=== PATIENT | female | born 2000 | race Caucasian/White ===

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

== ENCOUNTER 2022-01-14 22:45 | Emergency (ER) | payer BC ==
[~2022-01-14] VITALS: Ht 165.1 cm; Wt 83.0 kg
[~2022-01-14 22:45] MED LIST changes: +PREDNISONE10 MG PO
[2022-01-14 23:04] VITALS: BP 128/82
[2022-01-14 23:16] VITALS: BP 118/88
[2022-01-14 23:30] VITALS: BP 124/86
[2022-01-15 00:18] LABS: ALBUMIN 4.6 g/dL (3.2-5.0); BUN 17 mg/dL (8-21); BUN/CREATININE RATIO 26 (12-20 (CALC)); CHLORIDE 107 mmol/l (95-108); CREATININE 0.6 mg/dL (0.5-1.0); GFR FOR AFR.AMER. > 60 ML/MIN (>=60 (CALC)); GFR OTHER RACES > 60 ML/MIN (>=60 (CALC)); POTASSIUM 4.2 mmol/l (3.5-5.1); SGOT/AST 22 u/l (14-36); SODIUM 140 mmol/l (137-146); TOTAL PROTEIN 7.5 g/dL (6.3-8.2)
[2022-01-15 00:19] LABS: IMMATURE GRANULOCYTES 1.1 % (0.0-5.0); MEAN CORPUSCULAR HGB 28.7 pG CALC (26.0-32.0); MEAN CORPUSCULAR HGB CONC 32.2 g/dL CAL (32.0-36.0); NEUT# 5.58 thou/uL (2.00-7.15); RED BLOOD COUNT 4.87 mill/uL (4.20-5.60); RED CELL DISTRI WIDTH 12.1 % (11.5-15.5)
[2022-01-15 00:21] LABS: ALKALINE PHOSPHATASE 57 u/l (38-126); ANION GAP 13 (6-22 (CALC)); BILIRUBIN, TOTAL 0.2 mg/dL (0.0-1.4); CARBON DIOXIDE 24 mmol/l (22-30); HEMATOCRIT 43.5 % (37.0-47.0); MEAN CELL VOLUME 89.3 fL CALC (80.0-100.0)
[2022-01-15] MEDS ORDERED: PREDNISONE50 MG PO (00:32)
[2022-01-15 00:57] VITALS: BP 124/86
== END 2022-01-15 01:06 | disposition home or self-care (01) | DRG 918 ==
LOC: ED 22:45
PROVIDERS: Family Medicine
DX: T36.8X5A Adverse effect of other systemic antibiotics, initial encounter (principal)

== ENCOUNTER 2022-01-19 22:55 | Emergency (ER) | payer BC ==
[~2022-01-19] VITALS: Ht 165.1 cm; Wt 83.0 kg
[~2022-01-19 22:55] MED LIST changes: +PREDNISONE50 MG PO
[2022-01-20 00:50] LABS: HEMATOCRIT 42.1 % (37.0-47.0); HEMOGLOBIN 13.6 g/dl (12.0-16.0); IMMATURE GRANULOCYTES 0.9 % (0.0-5.0); MEAN CELL VOLUME 90.1 fL CALC (80.0-100.0); MEAN CORPUSCULAR HGB 29.1 pG CALC (26.0-32.0); MEAN CORPUSCULAR HGB CONC 32.3 g/dL CAL (32.0-36.0); NEUT# 10.21 thou/uL (2.00-7.15); RED BLOOD COUNT 4.67 mill/uL (4.20-5.60); RED CELL DISTRI WIDTH 12.1 % (11.5-15.5)
[2022-01-20 01:03] LABS: ALBUMIN 4.6 g/dL (3.2-5.0); ALKALINE PHOSPHATASE 63 u/l (38-126); ANION GAP 15 (6-22 (CALC)); BILIRUBIN, TOTAL 0.2 mg/dL (0.0-1.4); BUN 17 mg/dL (8-21); BUN/CREATININE RATIO 28 (12-20 (CALC)); CARBON DIOXIDE 24 mmol/l (22-30); CHLORIDE 109 mmol/l (95-108); CREATININE 0.6 mg/dL (0.5-1.0); GFR FOR AFR.AMER. > 60 ML/MIN (>=60 (CALC)); GFR OTHER RACES > 60 ML/MIN (>=60 (CALC)); POTASSIUM 4.2 mmol/l (3.5-5.1); SGOT/AST 24 u/l (14-36); SODIUM 143 mmol/l (137-146); TOTAL PROTEIN 8.1 g/dL (6.3-8.2)
[2022-01-20] MEDS ORDERED: DEPO-PROVER150 MG/M1 IM (01:30)
[2022-01-20 01:55] VITALS: BP 132/79
== END 2022-01-20 01:57 | disposition home or self-care (01) | DRG 379 ==
LOC: ED 22:55
PROVIDERS: Emergency Medicine
DX: K92.1 Melena (principal)

== ENCOUNTER 2022-04-10 19:53 | Emergency (ER) | payer BC ==
[~2022-04-10] VITALS: Ht 165.1 cm; Wt 86.0 kg
[~2022-04-10 19:53] MED LIST changes: +DEPO-PROVER150 MG/M1 IM
[2022-04-10 20:32] VITALS: BP 132/87
[2022-04-10 20:45] VITALS: BP 140/101
[2022-04-10 21:00] VITALS: BP 141/93
[2022-04-10 22:33] LABS: BASO% 0.4 % (0-3); EOS% 0.5 % (0-8); HEMOGLOBIN 12.8 g/dl (12.0-16.0); IMMATURE GRANULOCYTES 0.2 % (0.0-5.0); LYMPH% 15.2 % (15-41); MEAN CELL VOLUME 89.2 fL CALC (80.0-100.0); MEAN CORPUSCULAR HGB 29.3 pG CALC (26.0-32.0); MEAN CORPUSCULAR HGB CONC 32.8 g/dL CAL (32.0-36.0); MONO% 4.7 % (2-13); NEUT# 8.36 thou/uL (2.00-7.15); RED BLOOD COUNT 4.37 mill/uL (4.20-5.60); RED CELL DISTRI WIDTH 12.1 % (11.5-15.5)
[2022-04-10 22:37] LABS: URINE BILIRUBIN - DIPSTICK NEGATIVE (NEGATIVE); URINE BLOOD DIPSTICK MODERATE (NEGATIVE); URINE COLOR YELLOW; URINE GLUCOSE - DIPSTICK NEGATIVE (NEGATIVE); URINE KETONE NEGATIVE (NEGATIVE); URINE LEUK ESTERASE NEGATIVE (NEGATIVE); URINE PH 6.5 (4.5-8.0); URINE PROTEIN - DIPSTICK NEGATIVE (NEG-TRACE); URINE SPECIFIC GRAVITY 1.015; URINE UROBILINOGEN - DIPSTICK 0.2 E.U./dL (0.2)
[2022-04-10 22:41] LABS: HCG SERUM/URINE (NEG/POS) NEGATIVE (NEGATIVE)
[2022-04-10 22:44] LABS: ALBUMIN 4.6 g/dL (3.2-5.0); ALKALINE PHOSPHATASE 59 u/l (38-126); ANION GAP 11 (6-22 (CALC)); BILIRUBIN, TOTAL 0.2 mg/dL (0.0-1.4); BUN 10 mg/dL (7-17); BUN/CREATININE RATIO 16 (12-20 (CALC)); CARBON DIOXIDE 26 mmol/l (22-30); CHLORIDE 109 mmol/l (95-108); CREATININE 0.6 mg/dL (0.5-1.0); GFR FOR AFR.AMER. > 60 ML/MIN (>=60 (CALC)); GFR OTHER RACES > 60 ML/MIN (>=60 (CALC)); POTASSIUM 4.2 mmol/l (3.5-5.1); SGOT/AST 38 u/l (14-36); SODIUM 141 mmol/l (137-146)
[2022-04-10 22:44] LABS: URINE NITRITE - DIPSTICK NEGATIVE (Negative)
[2022-04-10 22:58] LABS: URINE SQUAMOUS EPITHELIAL CELL FEW EPI/hpf (0-FEW); URINE WBC 0-2 WBC/hpf (0-5)
[2022-04-10 23:55] VITALS: BP 141/93
== END 2022-04-10 23:55 | disposition home or self-care (01) | DRG 310 ==
LOC: ED 19:53
PROVIDERS: Emergency Medicine
DX: R00.2 Palpitations (principal); R00.0 Tachycardia, unspecified